=== PATIENT | female | born 1995 | race Caucasian/White ===

== ENCOUNTER 2022-05-27 21:33 | Inpatient (IN) | payer MEDICAID, OTHER ==
[~2022-05-27] VITALS: Ht 167.6 cm; Wt 58.5 kg
[2022-05-27] MEDS ORDERED: DIAZEPAM 5 MG/ML 2 ML SYRINGE IM ONE (22:15)
[2022-05-27 22:42] LABS: HEMATOCRIT 35.7 % (36-46); LYMPHOCYTES # (AUTO) 2.8 K/uL (1.0-4.8); LYMPHOCYTES % (AUTO) 32.2 % (22.0-44.0); MEAN CORPUSCULAR HEMOGLOBIN 27.6 pg (26.0-34.0); MEAN CORPUSCULAR HGB CONC 33.7 G/dL (31.0-37.0); MEAN CORPUSCULAR VOLUME 82 fL (80-100); MONOCYTES # (AUTO) 0.5 K/uL (0.1-1.0); MONOCYTES % (AUTO) 5.6 % (2.0-9.0); NEUTROPHILS # (AUTO) 5.2 K/uL (1.8-7.7); NEUTROPHILS % (AUTO) 60.2 % (40.0-70.0); PLATELET COUNT (AUTO) 270 K/uL (150-450); RED BLOOD CELL COUNT(AUTO) 4.35 MIL/uL (4.00-5.20); RED CELL DISTRIBUTION WIDTH 13.8 % (11.5-14.5)
[2022-05-27 22:50] LABS: CALCIUM, TOTAL 9.3 mg/dL (8.8-10.5); CHLORIDE 102 mmol/L (98-107); CREATININE 0.98 mg/dL (0.60-1.30); GLUCOSE,RANDOM 74 mg/dL (70-110); POTASSIUM 3.4 mmol/L (3.5-5.1); UREA NITROGEN, BLOOD 19 mg/dL (7-18)
[2022-05-27 23:01] LABS: ALANINE AMINOTRANSFERASE 23 U/L (12-78); ALBUMIN 4.1 g/dL (3.4-5.0); ALKALINE PHOSPHATASE 66 U/L (46-116); ANION GAP 8 mmol/L (8-16); ASPARTATE AMINOTRANSFERASE 20 U/L (15-37); BILIRUBIN,TOTAL 0.4 mg/dL (0.1-1.0); CARBON DIOXIDE 30 mmol/L (22-29); HCG,QUANTITATIVE < 1 mIU/mL (0-6); SODIUM SERUM 140 mmol/L (136-145); TOTAL PROTEIN, SERUM 7.3 g/dL (6.4-8.2)
[2022-05-27 23:11] LABS: GLOMERULAR FILTR. RATE CALC > 60 mL/min (>60)
[2022-05-27 23:46] LABS: COVID AG,FIA SOURCE NASAL SWAB
[2022-05-28 11:49] VITALS: BP 125/80
[2022-05-29] MEDS ORDERED: POTASSIUM CHLORIDE 20 MEQ ER TABLET PO ONE (04:30)
[2022-05-29 07:07] VITALS: BP 116/64
[2022-05-29 08:26] LABS: CHOL/HDL RATIO 2.1 (3.9-5.7); FREE T4 (FREE THYROXINE) 1.51 ng/dL (0.76-1.46); THYROID STIMULATING HORMONE 0.13 uIU/mL (0.36-3.74)
[2022-05-29 09:36] VITALS: BP 112/69
[2022-05-29 20:31] VITALS: BP 108/63
[2022-05-30] MEDS: RisperiDONE 1 MG TABLET PO SCH ×2 (08:01→19:58)
[2022-05-30 08:21] VITALS: BP 101/71
[2022-05-30 21:44] VITALS: BP 120/79
[2022-05-31] MEDS: RisperiDONE 1 MG TABLET PO SCH ×2 (08:17→21:33)
[2022-05-31] MEDS ORDERED: DOCUSATE SODIUM 100 MG CAPSULE PO PRN (13:30)
[2022-05-31] MEDS ORDERED: ONDANSETRON HCL 4 MG TABLET PO PRN (13:30)
[2022-05-31] MEDS ORDERED: GuaiFENesin/D-METHORPHAN [SUGAR-FREE] 200-20MG/10 ML SYRUP UDCUP PO PRN (13:30)
[2022-05-31] MEDS ORDERED: MAGNESIUM HYDROXIDE SUSPENSION 30 ML UDCUP PO PRN (13:30)
[2022-05-31] MEDS ORDERED: PETROLATUM,WHITE 28 GM JELLY TP PRN (13:30)
[2022-05-31] MEDS ORDERED: CloNIDine HCL 0.1 MG TABLET PO PRN (13:30)
[2022-05-31] MEDS ORDERED: NICOTINE 14 MG/24 HOUR PATCH TD PRN (13:30)
[2022-05-31] MEDS: IBUPROFEN 400 MG TABLET PO PRN (13:54)
[2022-06-01 00:02] VITALS: BP 126/83
[2022-06-01 07:15] LABS: APPEARANCE,URINE TURBID (CLEAR); BILIRUBIN,URINE NEGATIVE (NEGATIVE); GLUCOSE, URINE (UA) NEGATIVE (NEGATIVE); KETONES,URINE 40-60 mg/dL (NEGATIVE); LEUKOCYTE ESTERASE ,URINE NEGATIVE (NEGATIVE); NITRATE,URINE NEGATIVE (NEGATIVE); OCCULT BLOOD,URINE TRACE (NEGATIVE); PROTEIN,URINE TRACE mg/dL (NEGATIVE); SPECIFIC GRAVITIY, URINE 1.038 (1.003-1.030); UROBILINOGEN,URINE <=1.0 mg/dL (<=1.0)
[2022-06-01 07:20] LABS: AMPHET/METH SCREEN,URINE NEGATIVE (NEGATIVE); BARBITURATE SCREEN, URINE NEGATIVE (NEGATIVE); BENZODIAZEPINES SCREEN,URINE POSITIVE (NEGATIVE); CANNABINOID SCREEN,URINE NEGATIVE (NEGATIVE); COCAINE SCREEN,URINE NEGATIVE (NEGATIVE); METHADONE SCREEN, URINE NEGATIVE (NEGATIVE); OPIATE SCREEN,URINE NEGATIVE (NEGATIVE)
[2022-06-01 07:23] LABS: PHENCYCLIDINE SCREEN,URINE NEGATIVE (NEGATIVE)
[2022-06-01 08:10] LABS: BACTERIA,URINE None Seen /HPF (None Seen); RBC,URINE 0-2 /HPF (0-2); WBC,URINE None Seen /HPF (0-5)
[2022-06-01 08:11] LABS: AMORPHOUS SEDIMENT,UR Many /LPF (None Seen)
[2022-06-01] MEDS: RisperiDONE 1 MG TABLET PO SCH ×2 (08:54→20:16)
[2022-06-02] MEDS: RisperiDONE 1 MG TABLET PO SCH ×2 (08:03→20:14)
[2022-06-02 08:08] VITALS: BP 113/74
[2022-06-02 20:22] VITALS: BP 115/76
[2022-06-03] MEDS: RisperiDONE 1 MG TABLET PO SCH (08:06)
[2022-06-03 08:53] VITALS: BP 102/64
[2022-06-03] MEDS: SERTRALINE HCL 50 MG TABLET PO SCH (09:45)
[2022-06-03] MEDS: LOPERAMIDE HCL 2 MG CAPSULE PO PRN (15:22)
[2022-06-03 20:05] VITALS: BP 108/67
[2022-06-03] MEDS: RisperiDONE 2 MG TABLET PO SCH (20:51)
[2022-06-03] MEDS: ZOLPIDEM TARTRATE 10 MG TABLET PO PRN (20:52)
[2022-06-03] MEDS: ALBUTEROL SULFATE HFA 90 MCG/PUFF 8 GM INHALER IH PRN (20:57)
[2022-06-04] MEDS: LORazepam 2 MG TABLET PO PRN ×2 (04:40→17:07)
[2022-06-04] MEDS: SERTRALINE HCL 50 MG TABLET PO SCH (09:27)
[2022-06-04] MEDS: RisperiDONE 2 MG TABLET PO SCH ×2 (09:27→20:46)
[2022-06-04 09:31] VITALS: BP 91/59
[2022-06-04] MEDS: ALBUTEROL SULFATE HFA 90 MCG/PUFF 8 GM INHALER IH PRN (19:42)
[2022-06-04 20:42] VITALS: BP 128/73
[2022-06-05] MEDS: IBUPROFEN 400 MG TABLET PO PRN ×2 (08:11→18:18)
[2022-06-05] MEDS: RisperiDONE 2 MG TABLET PO SCH ×2 (08:12→21:00)
[2022-06-05] MEDS: SERTRALINE HCL 50 MG TABLET PO SCH (08:12)
[2022-06-05 08:20] VITALS: BP 108/70
[2022-06-05 18:31] LABS: GLUCOMETER DEV NAME(LOC) POC.BV
[2022-06-05 20:23] VITALS: BP 104/67
[2022-06-06] MEDS: ALBUTEROL SULFATE HFA 90 MCG/PUFF 8 GM INHALER IH PRN ×3 (04:59→20:04)
[2022-06-06] MEDS: LOPERAMIDE HCL 2 MG CAPSULE PO PRN (05:44)
[2022-06-06] MEDS: RisperiDONE 2 MG TABLET PO SCH ×2 (08:10→20:04)
[2022-06-06] MEDS: SERTRALINE HCL 50 MG TABLET PO SCH (08:10)
[2022-06-06 08:24] VITALS: BP 101/62
[2022-06-06 20:06] VITALS: BP 134/83
[2022-06-06] MEDS: ZOLPIDEM TARTRATE 10 MG TABLET PO PRN (23:13)
[2022-06-06] MEDS: HALOPERIDOL 5 MG TABLET PO PRN (23:14)
[2022-06-07] MEDS: RisperiDONE 2 MG TABLET PO SCH ×2 (08:12→20:31)
[2022-06-07] MEDS: SERTRALINE HCL 50 MG TABLET PO SCH (08:12)
[2022-06-07] MEDS: ALBUTEROL SULFATE HFA 90 MCG/PUFF 8 GM INHALER IH PRN ×2 (08:17→16:22)
[2022-06-07 08:29] VITALS: BP 124/85
[2022-06-07] MEDS ORDERED: SERTRALINE HCL 50 MG TABLET PO ONE (09:30)
[2022-06-07] MEDS: ATROPINE SULFATE 1% 5 ML OPHTHALMIC SOLUTION SL PRN (12:55)
[2022-06-07] MEDS: IBUPROFEN 400 MG TABLET PO PRN (14:22)
[2022-06-07 20:15] VITALS: BP 129/82
[2022-06-08] MEDS: ZOLPIDEM TARTRATE 10 MG TABLET PO PRN ×2 (00:20→21:21)
[2022-06-08] MEDS: LORazepam 2 MG TABLET PO PRN ×2 (05:01→19:39)
[2022-06-08] MEDS: HALOPERIDOL 5 MG TABLET PO PRN (05:01)
[2022-06-08 08:04] VITALS: BP 121/75
[2022-06-08] MEDS: RisperiDONE 2 MG TABLET PO SCH ×2 (08:08→20:23)
[2022-06-08] MEDS: SERTRALINE HCL 50 MG TABLET PO SCH (08:08)
[2022-06-08] MEDS: ATROPINE SULFATE 1% 5 ML OPHTHALMIC SOLUTION SL PRN ×2 (10:06→17:37)
[2022-06-08] MEDS: IBUPROFEN 400 MG TABLET PO PRN (12:39)
[2022-06-08 20:25] VITALS: BP 128/87
[2022-06-09] MEDS: SERTRALINE HCL 50 MG TABLET PO SCH (08:23)
[2022-06-09] MEDS: RisperiDONE 2 MG TABLET PO SCH ×2 (08:23→21:36)
[2022-06-09 08:24] VITALS: BP 114/62
[2022-06-09] MEDS: ATROPINE SULFATE 1% 5 ML OPHTHALMIC SOLUTION SL PRN ×3 (08:25→17:56)
[2022-06-09 09:57] VITALS: BP 103/76
[2022-06-09] MEDS: IBUPROFEN 400 MG TABLET PO PRN (09:57)
[2022-06-09 20:07] VITALS: BP 109/63
[2022-06-09] MEDS: ZOLPIDEM TARTRATE 10 MG TABLET PO PRN (21:36)
[2022-06-10] MEDS: ATROPINE SULFATE 1% 5 ML OPHTHALMIC SOLUTION SL PRN ×3 (02:49→19:50)
[2022-06-10 08:12] VITALS: BP 130/83
[2022-06-10] MEDS: SERTRALINE HCL 50 MG TABLET PO SCH (08:15)
[2022-06-10] MEDS: RisperiDONE 2 MG TABLET PO SCH ×2 (08:15→21:04)
[2022-06-10] MEDS: LORazepam 2 MG TABLET PO PRN (10:51)
[2022-06-10] MEDS: IBUPROFEN 400 MG TABLET PO PRN ×2 (10:51→19:50)
[2022-06-10] MEDS: ALBUTEROL SULFATE HFA 90 MCG/PUFF 8 GM INHALER IH PRN (15:48)
[2022-06-10 20:26] VITALS: BP 130/83
[2022-06-10] MEDS: ZOLPIDEM TARTRATE 10 MG TABLET PO PRN (21:08)
[2022-06-11] MEDS: ATROPINE SULFATE 1% 5 ML OPHTHALMIC SOLUTION SL PRN ×2 (04:21→12:59)
[2022-06-11] MEDS: MAG HYDROX/AL HYDROX/SIMETH ES 30 ML SUSPENSION UDCUP PO PRN ×2 (05:48→23:48)
[2022-06-11 08:02] VITALS: BP 137/82
[2022-06-11] MEDS: RisperiDONE 2 MG TABLET PO SCH ×2 (08:09→20:09)
[2022-06-11] MEDS: SERTRALINE HCL 50 MG TABLET PO SCH (08:09)
[2022-06-11] MEDS: IBUPROFEN 400 MG TABLET PO PRN ×2 (08:10→18:53)
[2022-06-11 18:50] VITALS: BP 121/79
[2022-06-11 20:05] VITALS: BP 114/68
[2022-06-12] MEDS: SERTRALINE HCL 50 MG TABLET PO SCH (08:07)
[2022-06-12] MEDS: RisperiDONE 2 MG TABLET PO SCH ×2 (08:07→20:10)
[2022-06-12] MEDS: IBUPROFEN 400 MG TABLET PO PRN (08:08)
[2022-06-12 08:15] VITALS: BP 129/80
[2022-06-12] MEDS: LOPERAMIDE HCL 2 MG CAPSULE PO PRN (10:25)
[2022-06-12 10:41] LABS: GLUCOMETER DEV NAME(LOC) POC.BV
[2022-06-13 01:48] VITALS: BP 111/73
[2022-06-13] MEDS: IBUPROFEN 400 MG TABLET PO PRN ×3 (02:18→21:05)
[2022-06-13 08:00] VITALS: BP 117/75
[2022-06-13] MEDS: SERTRALINE HCL 50 MG TABLET PO SCH (08:08)
[2022-06-13] MEDS: RisperiDONE 2 MG TABLET PO SCH ×2 (08:08→20:04)
[2022-06-13] MEDS: ATROPINE SULFATE 1% 5 ML OPHTHALMIC SOLUTION SL PRN ×2 (09:44→20:05)
[2022-06-13 20:10] VITALS: BP 116/72
[2022-06-13] MEDS: TraZODone HCL 50 MG TABLET PO PRN (21:05)
[2022-06-14] MEDS: RisperiDONE 2 MG TABLET PO SCH ×2 (08:06→20:14)
[2022-06-14] MEDS: SERTRALINE HCL 50 MG TABLET PO SCH (08:06)
[2022-06-14 08:16] VITALS: BP 129/78
[2022-06-14] MEDS: ATROPINE SULFATE 1% 5 ML OPHTHALMIC SOLUTION SL PRN ×2 (09:45→16:51)
[2022-06-14] MEDS: TraZODone HCL 50 MG TABLET PO PRN (20:14)
[2022-06-14 20:20] VITALS: BP 119/82
[2022-06-15 04:23] VITALS: BP 119/87
[2022-06-15] MEDS: IBUPROFEN 400 MG TABLET PO PRN (04:27)
[2022-06-15 08:13] VITALS: BP 133/73
[2022-06-15] MEDS: SERTRALINE HCL 50 MG TABLET PO SCH (08:29)
[2022-06-15] MEDS: RisperiDONE 2 MG TABLET PO SCH ×2 (08:29→20:05)
[2022-06-15] MEDS: LOPERAMIDE HCL 2 MG CAPSULE PO PRN (10:46)
[2022-06-15] MEDS: ATROPINE SULFATE 1% 5 ML OPHTHALMIC SOLUTION SL PRN (12:25)
[2022-06-15 16:02] VITALS: BP 111/76
[2022-06-15 20:04] VITALS: BP 111/76
[2022-06-16 05:00] VITALS: BP 110/68
[2022-06-16] MEDS: IBUPROFEN 400 MG TABLET PO PRN (05:00)
[2022-06-16] MEDS: RisperiDONE 2 MG TABLET PO SCH ×2 (08:07→20:04)
[2022-06-16] MEDS: SERTRALINE HCL 50 MG TABLET PO SCH (08:08)
[2022-06-16 08:15] VITALS: BP 111/70
[2022-06-16 20:29] VITALS: BP 113/71
[2022-06-17 08:25] VITALS: BP 103/63
[2022-06-17] MEDS: RisperiDONE 2 MG TABLET PO SCH ×2 (08:59→20:02)
[2022-06-17] MEDS: SERTRALINE HCL 50 MG TABLET PO SCH (08:59)
[2022-06-17] MEDS: ATROPINE SULFATE 1% 5 ML OPHTHALMIC SOLUTION SL PRN (09:01)
[2022-06-17 21:12] VITALS: BP 102/60
[2022-06-18] MEDS: HALOPERIDOL 5 MG TABLET PO PRN (02:55)
[2022-06-18] MEDS ORDERED: RISP2TAB86 PO (03:41)
[2022-06-18] MEDS ORDERED: SERT-439 PO (03:41)
[2022-06-18] MEDS ORDERED: ATRO5DRO SL (03:41)
[2022-06-18] MEDS: RisperiDONE 2 MG TABLET PO SCH (08:11)
[2022-06-18] MEDS: SERTRALINE HCL 50 MG TABLET PO SCH (08:11)
[2022-06-18 08:30] VITALS: BP 116/73
== END 2022-06-18 09:49 | disposition home or self-care (01) | DRG 750 ==
LOC: EMS 21:33 → B3A 05-28 07:36 → 3EI 05-28 07:36 → UNDOADMIN 05-28 07:36 → B3A 05-28 16:48
PROVIDERS: ADMIT Psychiatry & Neurology Psychiatry; ATTEND Psychiatry & Neurology Psychiatry
DX: F25.1 Schizoaffective disorder, depressive type (principal); R45.851 Suicidal ideations; E87.6 Hypokalemia; F10.10 Alcohol abuse, uncomplicated; Z20.822 Contact with and (suspected) exposure to COVID-19; F19.10 Other psychoactive substance abuse, uncomplicated; K11.7 Disturbances of salivary secretion; Z79.899 Other long term (current) drug therapy; Z88.0 Allergy status to penicillin; Z88.8 Allergy status to other drugs, medicaments and biological substances
CPT/HCPCS: 80053; 80061; 80307; 81001; 84132; 84439; 84443; 84702; 85025; 99285; G0480; J3535; Q0162

== ENCOUNTER 2022-05-28 14:58 | Emergency (ER) | payer MEDICAID, OTHER ==
[~2022-05-28] VITALS: Ht 167.6 cm; Wt 68.0 kg
[2022-05-28] MEDS ORDERED: HALOPERIDOL 5 MG TABLET PO ONE (16:45)
[2022-05-28] MEDS ORDERED: DiphenhydrAMINE HCL 25 MG CAPSULE PO ONE (16:45)
[2022-05-28] MEDS ORDERED: LORazepam 2 MG TABLET PO ONE (16:45)
[2022-05-28 19:28] VITALS: BP 122/77
== END 2022-05-28 21:58 | disposition home or self-care (01) ==
LOC: EMS 15:08
DX: L73.9 Follicular disorder, unspecified (principal); F29 Unspecified psychosis not due to a substance or known physiological condition; F15.90 Other stimulant use, unspecified, uncomplicated
CPT/HCPCS: 99284; Z7502; Z7610